=== PATIENT | female | born 1970 | race Caucasian/White ===

== ENCOUNTER 2022-12-10 08:39 | Emergency (ER) | payer BC, SELFPAY ==
[2022-12-10 08:42] VITALS: BP 151/79; PULSE 63; RESP 16; TEMP 36.2; O2SAT 100; BMI 30.4
--- NOTE | 2022-12-10 08:44 | ECG_ITS ---
Test Reason : DIZZY Blood Pressure : / mmHG Vent. Rate : 061 BPM Atrial Rate : 061 BPM P-R Int : 132 ms QRS Dur : 086 ms QT Int : 464 ms P-R-T Axes : 043 -05 024 degrees QTc Int : 467 ms Normal sinus rhythm Low voltage QRS Normal ECG No previous ECGs available Referred By: Generic ED Physician Electronically Signed By:REANNA ZAMBRANO MD
[2022-12-10 09:07] LABS: MANUAL DIFF FLAG NO
[2022-12-10 09:08] LABS: Basophils Absolute Auto 0.1 X10*3/uL (0.0-0.2); Basophils Percent Auto 0.9 % (0-2); Eosinophils Absolute Auto 0.2 X10*3/uL (0.0-0.4); Eosinophils Percent Auto 2.5 % (0-4); Hematocrit 42.2 % (37.0-47.0); Imm Gran Abs Auto 0.03 X10*3/uL (0.00-0.03); Imm Gran Pct Auto 0.4 % (0.0-0.4); Lymphocytes Absolute Auto 1.7 X10*3/uL (1.2-4.9); Lymphocytes Percent Auto 21.4 % (20-40); Mean Corpuscular HGB Conc 35.5 g/dl (31.0-35.0); Mean Corpuscular Hemoglobin 33.6 pg (27.0-33.0); Mean Corpuscular Volume 94.4 fL (80.0-98.0); Mean Platelet Volume 9.1 fL (9.4-12.3); Monocytes Absolute Auto 0.6 X10*3/uL (0.1-1.2); Monocytes Percent Auto 7.5 % (2-11); Neutrophils Absolute Auto 5.4 x10*3/uL (2.0-8.3); Neutrophils Percent Auto 67.3 % (45-73); Platelet Count 279 X10*3/uL (160-400); Red Blood Count 4.47 X10*6/uL (4.20-5.50)
--- NOTE | 2022-12-10 09:11 | ED_ITS ---
HPI - Dizziness General Chief Complaint: Dizziness Stated Complaint: dizzy Time Seen by Provider: 12/10/22 09:07 Source: patient and family () Mode of arrival: ambulatory Limitations: no limitations History of Present Illness HPI Narrative: 52-year-old female with no significant pmhx presents to the ED with a complaint of dizziness upon waking this morning. Describes this as a room-spinning sensation. Admits to nausea w/o vomiting. Endorses similar episode 2 days ago upon waking up lastting only a few mins. Occurred again upon waking up this morning however has not resolved. Dizziness is worse with sudden head movements. Denies LOC. Ambulating however feels unsteady. Denies fall. Denies fever, chills, MONTALVO, neck pain chest pain, SOB, abd pain, LE edema/erythema, dysuria or hematuria. No history of vertigo. No recent travel or long car rides. No history of CVA/TIA/cerebellar stroke. Not on AC. Related Data Previous Rx's Medication Instructions Recorded clotrimazole 1 % topical solution 1 appl topical BID 2 weeks #30 mL 12/10/22 meclizine 25 mg tablet 25 mg PO DAILY PRN dizziness #30 12/10/22 tabs Allergies Allergy/AdvReac Type Severity Reaction Status Date / Time Penicillins [PCN] Allergy Hives Verified 12/10/22 08:41 Sulfa (Sulfonamide Allergy Hives Verified 12/10/22 08:41 Antibiotics) Review of Systems 2 Review of Systems: Constitutional: No fever, chills, fatigue, night sweats, weight changes ENT/Mouth: No ear pain, hearing loss, nasal congestion, sinus pain, rhinorrhea, sore throat, +ear pruritus b/l Eyes: No eye pain, swelling, redness, vision changes, discharge Cardio: No chest pain, palpitations, RYAN, orthopnea, peripheral edema Pulm: No SOB, cough, sputum, wheezing, dyspnea, hemoptysis GI: No nausea, vomiting, hematemesis, abdominal pain, diarrhea, constipation, hematochezia, melena : No irregular bleeding, dysuria, frequency, urgency, hesitancy, hematuria, flank pain MSK: No back pain, neck pain, joint pain, myalgias Skin: No lesions, rashes Neuro: No weakness, numbness, paresthesias, LOC, +dizziness, No headache All other systems reviewed and are negative. [facility] Past Medical History Attestation statement: The following information was validated with the patient. Source: old records reviewed and nursing notes reviewed Social History Social History Advance Directives: No Physical Exam 2 Vital Signs: Vital Signs: Last Vital Signs Temp 97.2 F 12/10/22 08:42 Pulse 57 12/10/22 11:32 Resp 16 12/10/22 11:32 BP 134/70 12/10/22 11:32 Pulse Ox 100 12/10/22 11:32 O2 Del Method Room Air 12/10/22 11:32 BMI result Body Mass Index 30.4 Vital signs stable Const: Other: + lying with lights off, eyes closed, he sitant to make sudden mvmts General: cooperative, no acute distress, alert and awake O rientation/consciousness: patient oriented x3 Limitations: no limitations HEENT: Other: + No pain/ tenderness with manipulation of pinna or tragus. No mastoid tenderness. B/l EACs without erythema/edema. TMs are clear without effusion or perforation. There is a small amount of brown crystals noted at the base of the TMs not consistent with cerumen, ?skin flakes. Head: Yes normal to inspection, Yes normocephalic, Yes atraumatic, No scalp tenderness and No Temporal artery tenderness present Ears: hearing grossly normal bilaterally General nose exam: Normal external nose present Face and sinus: Yes sinuses nontender Eyes: General: appearance normal, both eyes and all related structures C onjunctivae: conjunctivae normal Sclerae: sclerae normal Pupils: Equal, round and reactive pupils present EOM: EOMs intact bilaterally Direct Ophthalmoscopy: no photophobia Neck: Neck: Yes normal visual inspection, Yes full ROM, Yes no lymphadenopathy and Yes no meningeal signs Resp: Effort & Inspection: normal respiratory effort Auscultation: clear to auscultation bilaterally Cardio: Rate: regular rate Rhythm: regular rhythm Peripheral pulses: r adial pulses present Skin: General skin exam: no rashes or lesions noted Neuro: General: patient oriented x3, gait normal, moves all extremities and no meningeal signs Cranial nerves: Yes CN's II-XII intact bilaterally, Yes Equal, round and reactive pupils present and Yes Nystagmus not present Gait exam (Neuro): Normal gait present Coordination: [id number] test normal, [id number] test normal and Normal rapid alternating movements of the distal upper extremity present (Neuro) Extrem: General: Yes normal to inspection and Yes capillary refill normal Course Course Course Narrative: 1116-- On review of labs, CBC is without leukocytosis or anemia. Chemistry is without acute electrolyte abnormalities requiring intervention. Troponin is undetectable. Unlikely ACS. Orthostatic vitals are negative > unlikely orthostasis. > On re-eval, patient reports sx improvement w/ meclizine and IVF > dizziness and nausea have resolved. Symptoms are most consistent with vertigo. I will send meclizine to her pharmacy. Patient now informs me that she has been experiencing itching to her ears bilaterally over the past 1-2 weeks. Exercises regularly w/ ear buds > does not clean these regularly. > On examination, no pain/ tenderness with manipulation of pinna or tragus. No mastoid tenderness. B/l EACs without erythema/edema. TMs are clear without effusion or perforation. There is a small amout of brown crystals noted at the base of the TMs not consistent with cerumen, ?skin flakes. Patient states that she has not been on abx recently and denies hx of DM. I do not feel as though symptoms are consistent with fungal OE however due to patient's complaint of incessant pruritus, I have offered to send trial of clotrimazole ear drops to pharmacy. I discussed this with my supervising [employer] who did not evaluate patient however agrees with management. Exam not consistent with otitis externa, media, mastoiditits, or malignant otitis and will not prescribe ABX at this time. > I advised patient to f/u w/ PCP. Has an appointment w/ them in 2 wks. Discussed strict return precautions. All questions answered at this time. Patient agreeable with disposition and stable for d/c. Medications Administered Discontinued Medications Generic Name Dose Route Start Last Admin Trade Name Freq PRN Reason Stop Dose Admin Sodium Chloride 1,000 mls @ 999 mls/hr 12/10/22 09:30 12/10/22 10:55 Ns IV 12/10/22 10:30 Infused .Q1H1M SIMONE Infusion Meclizine HCl 25 mg 12/10/22 09:18 12/10/22 09:35 Meclizine Hcl 25 Mg Tablet PO 12/10/22 09:19 25 mg ONCE ONE Administration Medical Decision Making Medical Decision Making [facility] Narrative: 52-year-old female with no significant pmhx presents to the ED with a complaint of dizziness upon waking this morning. Patient nontoxic appearing, in NAD. Exam nonfocal. Cerebellum intact. No nystagmus. PERRLA. Sinuses NT. No pain/ tenderness with manipulation of pinna or tragus. No mastoid tenderness. B/l EACs without erythema/edema. TMs are clear without effusion or perforation. There is a small amout of brown crystals noted at the base of the TMs not consistent with cerumen, ?skin flakes. Clinical concern for vertigo, dehydration, orthostatsis, electrolyte abnormality. Unlikely CVA/TIA, cerebellar stroke, headache/migraine. Lower suspicion for ACS, arrhythmia, PE. Unlikely otitis media/ externia, mastoiditis, malignant otitis, sinusitus. Plan at this time is EKG, trop, basic labs, ortho vitals, meds, IVF, and re-evaluation. Differential Diagnosis Differential Diagnoses: The differential diagnosis associated with the presentation includes As above. Admission/Observation Not indicated. Lab Data [facility] Lab Attestation statement: I reviewed the patient's lab results. As above. 12/10/22 09:03 12/10/22 09:03 Labs: Lab Results 12/10/22 Range/Units 09:03 WBC 8.0 (4.8-10.8) X10*3/uL RBC 4.47 (4.20-5.50) X10*6/uL Hgb 15.0 (12.0-16.0) g/dl Hct 42.2 (37.0-47.0) % MCV 94.4 (80.0-98.0) fL MCH 33.6 H (27.0-33.0) pg MCHC 35.5 H (31.0-35.0) g/dl RDW 12.0 (11.0-16.0) % Plt Count 279 (160-400) X10*3/uL MPV 9.1 L (9.4-12.3) fL Immature Gran % (Auto) 0.4 (0.0-0.4) % Neut % (Auto) 67.3 (45-73) % Lymph % (Auto) 21.4 (20-40) % Ida % (Auto) 7.5 (2-11) % Eos % (Auto) 2.5 (0-4) % Baso % (Auto) 0.9 (0-2) % Lymph # (Auto) 1.7 (1.2-4.9) X10*3/uL Ida # (Auto) 0.6 (0.1-1.2) X10*3/uL Eos # (Auto) 0.2 (0.0-0.4) X10*3/uL Baso # (Auto) 0.1 (0.0-0.2) X10*3/uL Abs Immat Gran (auto) 0.03 (0.00-0.03) X10*3/uL Absolute Neuts (auto) 5.4 (2.0-8.3) x10*3/uL Absolute Nucleated RBC 0.000 (0.0-0.012) X10*3/uL Nucleated RBC % (auto) 0.0 (0.0-0.2) /100WBC Sodium 140 (135-145) mmol/L Potassium 4.3 (3.3-5.1) mmol/L Chloride 104 (96-108) mmol/L Carbon Dioxide 29 (22-29) mmol/L Anion Gap 11 L (12-20) BUN 9 (9-16) mg/dL Creatinine 0.81 (0.5-1.4) mg/dL Estim Creat Clear Calc 82.3 Estimated GFR > 60 Random Glucose 117 H (60-115) mg/dL Calcium 10.0 (8.4-10.2) mg/dL Total Bilirubin 0.6 (0.0-1.0) mg/dL AST 49 H (5-31) U/L ALT 74 H (0-31) U/L Alkaline Phosphatase 84 (39-117) U/L Troponin I High Sens < 2.7 (<3.5-17.0) ng/L Total Protein 7.3 (6.5-8.0) g/dL Albumin 4.5 (3.5-5.0) g/dL Independent Interpretation I performed an independent interpretation of an: EKG Interpretation: EKG with NSR, rate of 61 bpm, QT 464, NH 132, no acute ischemic changes or ST elevations. Independent Historian Clinical information obtained from an independent historian. History obtained from or confirmed by: Spouse Prescription Management I considered prescription management with: Other (antiemetic) Critical Care Time Critical Care Time Critical Care Time: No Discharge Plan Discharge Clinical Impression: Vertigo, Acute fungal otitis externa Patient Disposition: Home, Self-Care Instructions: Vertigo (ED), Dizziness (ED) Additional Instructions: Your labs today are normal. Your cardiac enzymes are within normal limits. Your EKG is normal. Your symptoms improved with meclizine and IV fluids. Your symptoms are consistent with acute vertigo. Meclizine has been sent to your pharmacy. Take this as needed for dizziness/nausea. Clotrimazole is an antifungal that may help with the itching in your ears. This has been sent to your pharmacy. Place drops in your ear twice daily for the next 14 days. Clean off your ear buds after each work out to prevent further infection. Please follow-up with your primary care physician as scheduled. Return to the emergency department if her symptoms persist or worsen. In the case of an emergency call 911. Prescriptions: New meclizine 25 mg tablet 25 mg PO DAILY PRN (Reason: dizziness) Qty: 30 0RF clotrimazole 1 % solution 1 appl topical BID 14 Days Qty: 30 0RF Referrals: Bethanie Coelho MD [Primary Care Provider] - Stand Alone Forms: Work/School Release Interventions: ED Discharge Assessment Last Done: 12/10/22 11:36 Discharge Date/Time: 12/10/22 11:36
--- NOTE | 2022-12-10 09:11 | PC.NURSE ---
Pt reporting x2 days of room spinning, she is training for half marathons and thought she was just dehydrated, also reporting 1-2 weeks of inner ear itching, denies fevers, or drainage. IV placed, labs collected
[2022-12-10 09:24] LABS: Alanine Aminotransferase 74 U/L (0-31); Albumin Level 4.5 g/dL (3.5-5.0); Alkaline Phosphatase 84 U/L (39-117); Anion Gap 11 (12-20); Aspartate Amino Transferase 49 U/L (5-31); Bilirubin Total 0.6 mg/dL (0.0-1.0); Blood Urea Nitrogen 9 mg/dL (9-16); Carbon Dioxide 29 mmol/L (22-29); Chloride 104 mmol/L (96-108); Creatinine Clr Calc Pharmacy 82.3; Estimated Glomerular Filt Rate > 60; Glucose Random 117 mg/dL (60-115); Potassium 4.3 mmol/L (3.3-5.1); Sodium 140 mmol/L (135-145); Total Protein 7.3 g/dL (6.5-8.0)
[2022-12-10 09:32] LABS: Troponin-I High Sensitivity < 2.7 ng/L (<3.5-17.0)
[2022-12-10] MEDS: Meclizine HCl 25 MG TABLET PO (09:35)
[2022-12-10] MEDS: 0.9 % Sodium Chloride 1,000 ML 999 ML IV (09:35)
[2022-12-10 09:52] VITALS: BP 139/66; PULSE 54
[2022-12-10 09:54] VITALS: BP 166/81; PULSE 53
[2022-12-10 09:55] VITALS: BP 148/76; PULSE 53
--- NOTE | 2022-12-10 10:52 | PC.NURSE ---
Pt reporting she is feeling much better, dizziness has subsided, and her stomach is feeling more settled.
[2022-12-10 11:32] VITALS: BP 134/70; PULSE 57; RESP 16; O2SAT 100
== END 2022-12-10 11:36 | disposition home or self-care (01) ==
PROVIDERS: Emergency Provider Emergency Medicine; PCP Internal Medicine
DX: H60.503 Unspecified acute noninfective otitis externa, bilateral (principal); R42 Dizziness and giddiness; R11.2 Nausea with vomiting, unspecified; Z79.899 Other long term (current) drug therapy
CPT/HCPCS: 36415; 80053; 84484; 85025; 93005; 96360; 99284; 99285